=== PATIENT | male | born 1970 | race Caucasian/White ===

== ENCOUNTER 2024-11-26 11:29 | Emergency (ER) | payer OTHER ==
[~2024-11-26] VITALS: Ht 175.3 cm; Wt 119.3 kg
[2024-11-26 14:02] VITALS: BP 141/97
== END 2024-11-26 14:15 | disposition home or self-care (01) ==
LOC: ED 11:29
DX: B02.9 Zoster without complications (principal); E78.00 Pure hypercholesterolemia, unspecified; I10 Essential (primary) hypertension; I25.2 Old myocardial infarction; Z79.82 Long term (current) use of aspirin; Z79.899 Other long term (current) drug therapy
CPT/HCPCS: 99282

== ENCOUNTER 2025-10-09 07:34 | Emergency (ER) | payer OTHER ==
[~2025-10-09] VITALS: Ht 175.3 cm; Wt 121.6 kg
[~2025-10-09 07:34] MED LIST: ACYCLOVIR800 MG PO; BUPROPION XL300 MG; DICLOFENAC SODI75 MG; ESCITALOPRAM OX20 MG; HYDROXYZINE HCL25 MG PO; METOPROLOL TART25 MG PO; NORCO 5-325 TA1 EACH PO; VAZALORE81 MG; ZOCOR20 MG PO; ZOVIRAX5 GM TOP
[2025-10-09] MEDS ORDERED: SODIUM CHLORIDE 0.9% 1,000 ML IV ONE (08:00)
[2025-10-09 08:07] LABS: BASOPHILS 1.0 % (0.2-1.2); EOSINOPHILS 4.3 % (0.8-7.0); LYMPHOCYTES 35.3 % (21.8-53.1); MCH 26.9 PG (25.7-32.2); MCHC 33.3 g/dL (32.3-36.5); MCV 80.8 fL (79.0-92.2); MONOCYTES 9.0 % (5.3-12.2); NEUTROPHILS 50.2 % (34.0-67.9); RBC 5.25 M/uL (4.63-6.08)
[2025-10-09 08:50] LABS: ALT (SGPT) 24.0 U/L (14-59); AST (SGOT) 17.0 U/L (15-37); GLOMERULAR FILTRATION RATE,EST 103.0 mL/min (>60); PROTEIN, TOTAL 7.1 g/dL (6.4-8.2); UREA NITROGEN 17.0 mg/dL (7-18)
== END 2025-10-09 10:30 | disposition home or self-care (01) ==
LOC: ED 07:34
PROVIDERS: Emergency Medicine
DX: R10.11 Right upper quadrant pain (principal); I10 Essential (primary) hypertension; Z79.899 Other long term (current) drug therapy
CPT/HCPCS: 36415; 76705; 80053; 83690; 85025; 99284-25